=== PATIENT | female | born 1995 | race Caucasian/White ===

== ENCOUNTER 2017-09-21 19:48 | Emergency (ER) | payer SELFPAY ==
[~2017-09-21] VITALS: Ht 152.4 cm; Wt 47.2 kg
[2017-09-21 20:08] VITALS: BP 126/84
== END 2017-09-21 20:20 | disposition left against medical advice (07) ==
LOC: EME 19:48
DX: R21 Rash and other nonspecific skin eruption (principal); Z53.21 Procedure and treatment not carried out due to patient leaving prior to being seen by health care provider